=== PATIENT | male | born 1995 | race Two or more races ===

== ENCOUNTER 2019-04-14 15:25 | Emergency (ER) | payer SELFPAY ==
[~2019-04-14] VITALS: Ht 157.5 cm; Wt 59.0 kg
[2019-04-14 17:53] VITALS: BP 115/65
== END 2019-04-14 17:54 | disposition short-term general hospital (02) ==
LOC: EDBD 15:25 → ER 15:25
DX: R19.00 Intra-abdominal and pelvic swelling, mass and lump, unspecified site (principal); M25.561 Pain in right knee; M25.562 Pain in left knee; M54.9 Dorsalgia, unspecified; R07.89 Other chest pain; V80.010A Animal-rider injured by fall from or being thrown from horse in noncollision accident, initial encounter; Y93.89 Activity, other specified; Y99.8 Other external cause status; Y92.89 Other specified places as the place of occurrence of the external cause
CPT/HCPCS: 70450; 71250; 72125; 73562; 74176